=== PATIENT | male | born 1950 ===

== ENCOUNTER 2018-05-06 08:59 | Emergency (ER) | payer BC, MEDICARE ==
--- NOTE | 2018-05-06 09:07 | UC ---
Knee Pain HPI - HPI Summary HPI Summary: Patient is a 68 year old gentleman , who present today to the urgent care with right knee pain for past 4 days. He denies any specific knee injury but symptoms started after he was cleaning the floors at his son's house. Denies any prior injury or episodes. There is associated swelling and difficulty bending his knee. Denies any locking or clicking or any giving out sensation. Pain gets better when he starts to walk but otherwise any activity is painful. He tried ibuprofen last night 400 mg without much relief. He does report history of multiple tick bites and last one was a few months ago - History of Current Complaint Stated Complaint: KNEE PAIN Time Seen by Provider: 05/06/18 09:04 Hx Obtained From: Patient - Allergies/Home Medications Allergies/Adverse Reactions: Allergies Allergy/AdvReac Type Severity Reaction Status Date / Time No Known Allergies Allergy Verified 05/06/18 09:10 Home Medications: Home Medications Cholecalciferol TAB* [Vitamin D TAB*] 1,000 mg PO DAILY WITH MEAL 05/06/18 [ History Confirmed 05/06/18] Glucosamine Sulfate [Glucosamine Sulfate Maxim] 1,000 mg PO DAILY WITH MEAL [History Confirmed 05/06/18] Lysine 500 mg PO DAILY WITH MEAL 05/06/18 [History Confirmed 05/06/18] [place]-3 Fatty Acids/Fish Oil [Fish Oil 1,000 mg Capsule] 1 each PO DAILY WITH MEAL 05/06/18 [History Confirmed 05/06/18] PMH/Surg Hx/FS Hx/Imm Hx - Additional Past Medical History Additional PMH: Prostrate cancer Previously Healthy: Yes Review of Systems All Other Systems Reviewed And Are Negative: Yes Constitutional: Positive: Negative Skin: Positive: Negative Eyes: Positive: Negative ENT: Positive: Negative Respiratory: Positive: Negative Cardiovascular: Positive: Negative Gastrointestinal: Positive: Negative Genitourinary: Positive: Negative Motor: Positive: Decreased ROM - Right knee Neurovascular: Positive: Negative Musculoskeletal: Positive: Arthralgia - Right knee, Decreased ROM - Right knee, painful range of motion, Edema - Right knee Neurological: Positive: Negative Psychological: Positive: Negative Is Patient Immunocompromised?: No Physical Exam - Summary Physical Exam Summary: Physical Exam: Const: Appears well. No signs of apparent distress present. Alert and oriented x 3. Musculo: Walks with an antalgic gait Head/Face: Atraumatic, normocephalic on inspection. Eyes: EOMI and PERRLA in both eyes. Conjunctivae clear. No discharge noted ENT: Hearing normal Respiratory: Respirations are unlabored. CVS: Regular rate and Rhythm, S1S2 normal , no murmurs identified. Extremities: Peripheral circulation is grossly normal. Pulses 2+ Abdomen : Soft non tender , nondistended , Bowel sounds present Skin: No lesions or rash located on the upper extremities or on the lower extremities. Neuro: Cranial nerves II to XII intact, motor and sensory intact. DTR Intact bilaterally. Mood is normal. Affect is normal. Right knee : Insp/Palp: No deformity. Moderate effusion noted . Mild tenderness on the joint line and peripatellar area . Strength: Quadriceps 5/5 , No hamstring tightness. ROM: Limited and painful, 0-110 Special Tests: Limited testing due to pain and swelling. Lyudmila test appears negative. Anterior and posterior drawer test is negative. Valgus and varus stress test at 0 and 30 is negative. Marleen's could not be assessed- equivocal Triage Information Reviewed: Yes Vital Signs Reviewed: Yes Procedures - Procedure Summary Procedure Summary: Procedure note: Right knee arthrocentesis: I discussed risks (including pain, infection, bleeding), benefits, and alternatives (including not injecting). Informed consent was obtained from the patient. Prior to the injection, a time out was performed. Patient was placed in the supine position. After prepping the skin with alcohol , under sterile conditions, after local anesthesia with 1% lidocaine , 70 cc of cloudy yellowish fluid was drained from right knee . Corticosteroid injection was deferred due to the appearance of the joint fluid. Patient tolerated procedure well. No immediate complications were noted. Patient will report immediately with any signs of infection. Post injection instructions were given. Patient will apply ice to the involved area and avoid any exacerbating activities for the next few days Diagnostics - Radiology No standard instances Radiology Interpretation Completed By: Radiologist - Right knee x-rays:1. No fracture or traumatic malalignment. 2. Mild medial tibiofemoral and patellofemoral compartment osteoarthropathy. Knee Pain Course/Dx - Course Course Of Treatment: During the visit today, we obtained x-rays of the right knee:1. No fracture or traumatic malalignment.2. Mild medial tibiofemoral and patellofemoral compartment osteoarthropathy. . We discussed the findings and further treatment options and alternatives. His symptoms appear to be secondary to osteoarthritis flare but the possibility of Lyme arthritis given the history of tick bites cannot be completely ruled out . He opted to proceed with right knee joint arthrocentesis and a possible corticosteroid injection. 70 cc of cloudy yellowish fluid was drained from his right knee and since it's not clear straw-colored fluid corticosteroid injection was deferred. The fluid was sent for cell count culture and crystal evaluation, also obtain Lyme PCR on joint fluid. We will also do Lyme serology. I will prescribe the meloxicam to the pharmacy for pain. He was advised that once the results are available somebody will contact him with the results. He will follow up with orthopedics within this week. Patient expressed understanding . - Differential Dx/Diagnosis Provider Diagnosis: Right knee pain, Effusion, right knee, Osteoarthritis of right knee Discharge - Sign-Out/Discharge Documenting (check all that apply): Patient Departure All imaging exams completed and their final reports reviewed: Yes - Discharge Plan Condition: Stable Disposition: HOME Referrals: Azul Calderon MD [Primary Care Provider] - 1 Week Little Chapman MD [Medical Doctor] - 3 Days Additional Instructions: Please start taking the medication as prescribed to the pharmacy for pain relief. Test will be done on the joint fluid that was drawn today. Someone will contact you once the test results are available and plan further treatment if needed based on the findings and lab results from your joint fluid and the blood draw. Follow up with orthopedics in 2 - 3 days. Return to Urgent care / ER if symptoms get worse. - Billing Disposition and Condition Condition: STABLE Disposition: Home
[2018-05-06] MEDS ORDERED: Triamcinolone Acetonide* 40 MG/ML 1 ML VIAL INTRAARTIC ONE (10:01)
[2018-05-06] MEDS ORDERED: Lidocaine 1% MDV 20 ML INJ ONE (10:03)
[2018-05-06] MEDS ORDERED: Lidocaine 2% PF * 5 ML VIAL INJ ONE (10:08)
[2018-05-06] MEDS ORDERED: Lidocaine 1% MPF* 2 ML VIAL INJ ONE (10:09)
[2018-05-06] MEDS ORDERED: Lidocaine 1%* 5 ML VIAL ONE (10:13)
[2018-05-06] MEDS ORDERED: Lidocaine 1%* 5 ML VIAL INJ ONE (10:35)
[2018-05-06 13:29] LABS: Body Fluid Source Synovial Fluid
[2018-05-06 14:34] LABS: Body Fluid Mono 4 %
--- NOTE | 2018-05-07 13:15 | UC ---
- Progress Note Progress Note: synoviall fluid returnred- WBC's 32K, no acute process, follow up cultures, lyme. -Siri Deng PAC Course/Dx - Diagnoses Provider Diagnoses: Right knee pain, Effusion, right knee, Osteoarthritis of right knee Discharge - Sign-Out/Discharge Documenting (check all that apply): Patient Departure All imaging exams completed and their final reports reviewed: Yes - Discharge Plan Condition: Stable Disposition: HOME Prescriptions: Meloxicam 7.5 mg PO BID PRN 15 Days #30 tablet PRN Reason: Pain Patient Education Materials: Osteoarthritis (ED), Swollen Knee Joint (ED), Knee Pain (ED) Referrals: Azul Calderon MD [Primary Care Provider] - 1 Week Little Chapman MD [Medical Doctor] - 3 Days Additional Instructions: Please start taking the medication as prescribed to the pharmacy for pain relief. Test will be done on the joint fluid that was drawn today. Someone will contact you once the test results are available and plan further treatment if needed based on the findings and lab results from your joint fluid and the blood draw. Follow up with orthopedics in 2 - 3 days. Return to Urgent care / ER if symptoms get worse. - Billing Disposition and Condition Condition: STABLE Disposition: Home
[2018-05-08 18:53] LABS: Lyme Disease Serology Positive (Negative)
[2018-05-08 23:37] LABS: B. garinii/B. afzellii PCR Negative (Negative)
--- NOTE | 2018-05-09 12:08 | UC ---
- Progress Note Progress Note: patient had positive B. Burgdorfei noted in the joint fluid of a knee done on , serum testing only preliminary testing is back , WB confirmation has not been completed. spoke with patient to start doxycycline 100mg bid, until WB confirmation is back. Course/Dx - Diagnoses Provider Diagnoses: Right knee pain, Effusion, right knee, Osteoarthritis of right knee Discharge - Sign-Out/Discharge Documenting (check all that apply): Patient Departure - discharged home on All imaging exams completed and their final reports reviewed: Yes - Discharge Plan Condition: Stable Disposition: HOME Prescriptions: Meloxicam 7.5 mg PO BID PRN 15 Days #30 tablet PRN Reason: Pain Patient Education Materials: Osteoarthritis (ED), Swollen Knee Joint (ED), Knee Pain (ED) Referrals: Azul Calderon MD [Primary Care Provider] - 1 Week Little Chapman MD [Medical Doctor] - 3 Days Additional Instructions: Please start taking the medication as prescribed to the pharmacy for pain relief. Test will be done on the joint fluid that was drawn today. Someone will contact you once the test results are available and plan further treatment if needed based on the findings and lab results from your joint fluid and the blood draw. Follow up with orthopedics in 2 - 3 days. Return to Urgent care / ER if symptoms get worse. - Billing Disposition and Condition Condition: STABLE Disposition: Home
[2018-05-10 15:56] LABS: Lyme Disease IgG Ab WB Positive (Negative)
== END 2018-05-06 10:57 | disposition home or self-care (01) ==
LOC: UCEAST 08:59
DX: M25.461 Effusion, right knee (principal); M17.11 Unilateral primary osteoarthritis, right knee; Z85.46 Personal history of malignant neoplasm of prostate
CPT/HCPCS: 20610; 36415; 86617; 86618; 87040; 87205; 87476; 87640; 87641; 87798; 89051; 89060; 99202; G0463; J3301